=== PATIENT | male | born 1990 | race Caucasian/White ===

== ENCOUNTER 2023-12-06 19:38 | Emergency (ER) | payer BC, SELFPAY ==
[2023-12-06 19:46] VITALS: BP 116/80
[2023-12-06 21:25] VITALS: BP 132/109
[2023-12-06] MEDS: TYLENOL 1000 MG PO (21:58)
[2023-12-06] MEDS: TORADOL 15 MG IV (21:58)
[2023-12-06] MEDS: NSS 1000 IV (21:59)
[2023-12-06 22:16] LABS: % Basophils 0.3 % (0-2); % Immature Granulocytes 0.3 % (0-0.5); % Lymphocytes 8.6 % (20.5-51.1); % Monocytes 11.9 % (1.7-9.3); % Neutrophils 78.9 % (42.2-75.2); Absolute Lymphocytes 0.7 10^3/uL (1.2-3.4); Absolute Neutrophils 6.8 10^3/uL (1.4-6.5); Hematocrit 42.4 % (39.0-52.0); Hemoglobin 15.1 g/dL (13.0-18.0); Mean Corp Hgb Conc. 35.6 g/dL (33.0-37.0); Mean Corpuscular Hgb 29.2 pg (27.0-31.0); Mean Corpuscular Volume 81.9 fL (80.0-94.0); Mean Platelet Volume 8.8 fL (7.4-10.4); Nucleated Red Blood Cells % 0 % (-); Platelet Count 184 10^3/uL (130-400); Red Blood Cell Count 5.18 10^6/uL (4.70-6.10); Red Cell Dist. Width 12.6 % (11.5-14.5); White Blood Cell Count 8.6 10^3/uL (4.8-10.8)
[2023-12-06 22:29] LABS: ALT (SGPT) 26 U/L (0-50); AST (SGOT) 27 U/L (17-59); Albumin 4.8 g/dl (3.5-5.0); Alkaline Phosphatase 61 U/L (38-126); Blood Urea Nitrogen 14 mg/dl (9-20); Calcium 9.6 mg/dl (8.4-10.2); Carbon Dioxide 28 mmol/L (22-30); Chloride 99 mmol/L (98-107); Glucose 124 mg/dl (70-99); Potassium 4.3 mmol/L (3.5-5.1); Sodium 139 mmol/L (135-145); Total Bilirubin 0.8 mg/dl (0.2-1.3); Total Protein 7.5 g/dl (6.3-8.2); eGFR > 60.00
[2023-12-06 22:34] VITALS: BP 130/67
--- NOTE | 2023-12-06 23:37 | ED.GENMED ---
History of Present Illness
General
Chief Complaint: Fever
Time Seen by Provider: 12/06/23 21:22
History of Present Illness
History of Present Illness:
Patient started 2 days ago with myalgias slight cough and sore throat. Progressive over 2 days. Previous vaccinations for COVID
Past History
Past History
ED Past Medical History: None
Phy Exam
Physical Exam
Physical Exam:
GENERAL: Alert and oriented in no apparent distress
EYE: Orbits normal.
NECK: Supple, no significant adenopathy.
ENT: Pharynx with mild diffuse erythema. No drooling or stridor
CARDIAC: Regular rate and rhythm without any obvious murmurs.
LUNGS: Clear breath sounds,normal. Occasional slightly coarse cough
ABDOMEN: Soft, without focal tenderness or distention
NEUROLOGICAL: Alert and oriented , grossly non-focal
SKIN: Warm and dry, no rash or lesion, no discoloration, skin intact.
MUSCULOSKELETAL: No edema,no deformity.Good color
PSYCH: Normal and appropriate interaction.
Course
Orders/Labs/Results
Orders:
Orders
12/06/23 21:30
IV Insert/Care/Rem.- Treatment PRN
0.9% Sodium Chloride 1000 ml [Nss] 1,000 ml IV BOLUS
Acetaminophen [Tylenol] 1,000 mg PO NOW STA
Ketorolac [Toradol] 15 mg IV NOW STA
Pulse Ox/cont/shift [RESP] Stat
Quantity: 1
12/06/23 21:58
Complete Blood Count/With Diff Urgent
Comprehensive Metabolic Panel Urgent
12/06/23 22:12
CXR Port [CR Chest Portable - 1 View] Urgent
Comment:
Reason For Exam: sob/covid
Reason Study Needs to be Portable: Other
Abnormal Lab Results
12/06/23
21:58
Absolute Neuts (auto) 6.8 H 10^3/uL
(1.4-6.5)
Absolute Lymphs (auto) 0.7 L 10^3/uL
(1.2-3.4)
Absolute Monos (auto) 1.0 H 10^3/uL
(0.1-0.6)
Neutrophils % 78.9 H %
(42.2-75.2)
Lymphocytes % 8.6 L %
(20.5-51.1)
Monocytes % 11.9 H %
(1.7-9.3)
Glucose 124 H mg/dl
(70-99)
12/06/23 21:58
12/06/23 21:58
Vital Signs
Initial and Last Documented VS:
Initial Vital Signs
Temp Pulse Resp BP Pulse Ox
103.1 F H 104 24 116/80 94
12/06/23 19:46 12/06/23 19:46 12/06/23 19:46 12/06/23 19:46 12/06/23 19:46
Last Documented Vital Signs
Temp Pulse Resp BP Pulse Ox
102.9 F H 86 18 130/67 95
12/06/23 21:25 12/06/23 22:34 12/06/23 21:25 12/06/23 22:34 12/06/23 22:34
*Radiology
Radiology exam reviewed: preliminary read by ED provider (Negative) and radiology read reviewed (Negative)
*Pulse Oximetry
Patient hypoxic: no
*Critical Care Note
Total Time (30-74mins, 75-104mins- exclusive of procedures): Not Applicable
Update Note
Update Note:
Patient measures much better after hydration and antipyretics. No respiratory distress. Sats running mostly 94 to 95%. Negative chest x-ray. Discussed Paxlovid. No true indication given age, healthy, previous vaccinations. However I did offer
it. Patient will hold off.
ED Attending Note
-
Portions of this chart may have been created with voice recognition software.� Occasional wrong word or��sound alike� substitutions may have occurred due to the inherent limitations of voice recognition software.
Discharge Plan
Departure
Patient Disposition: Home (Routine Discharge)
Date of Disposition: 12/06/23
Time of Disposition: 23:38
Patient with high blood pressure during this ER visit?: Yes
Discharge Problem:
COVID infection
Referrals:
Jayson Unger, DO [Family Provider] - Follow up in 2-3 days
Activity Restrictions/Additional Instructions:
Stay well-hydrated
Tylenol or Motrin for fever
Return if symptoms or not improving in the next 2 to 3 days or progressive symptoms including increased shortness of breath vomiting dehydration increase sore throat etc.
Interventions
Interventions:
*Risk Screen - Suicide Last Done: 12/06/23 19:46
*General Assessment Last Done: 12/06/23 21:27
*Neglect/Abuse Screening Last Done: 12/06/23 19:46
*ED COVID-19 Vaccine History Last Done: 12/06/23 21:27
ED- Cardiac Assessment Last Done: 12/06/23 21:27
ED- Neurological Assessment Last Done: 12/06/23 21:27
ED- Pulmonary Assessment Last Done: 12/06/23 21:27
ED-Skin Assessment Last Done: 12/06/23 21:30
Discharge Date and Time
Print Language: [id number]
== END 2023-12-06 23:50 | disposition home or self-care (01) ==
LOC: EMR 19:38
PROVIDERS: EMERGENCY PHYSICIAN Emergency Medicine; FAMILY PHYSICIAN Family Medicine
DX: U07.1 COVID-19 (principal)
CPT/HCPCS: 99284; 96374; 96361; 71045; 80053; 85025